=== PATIENT | male | born 1960 | race African-American/Black ===

== ENCOUNTER 2018-05-15 13:54 | Observation (INO) | payer BC ==
[2018-05-15 15:08] LABS: ABSOLUTE BASOPHILS # (AUTO) 0.1 10^3/uL (0.0-0.2); ABSOLUTE EOSINOPHILS # (AUTO) 0.2 10^3/uL (0.0-0.6); ABSOLUTE MONOCYTES (AUTO) 0.4 10^3/uL (0.1-1.4); ABSOLUTE NEUT (AUTO) 3.7 10^3/uL (1.7-8.2); BASOPHILS % (AUTO) 1.6 % (0-2); EOSINOPHILS % (AUTO) 3.1 % (0-6); HEMATOCRIT 41.4 % (37.9-51.0); HEMOGLOBIN 14.3 g/dL (13.5-17.0); LYMPHOCYTES % (AUTO) 40.2 % (13-45); MEAN CORPUSCULAR HEMOGLOBIN 31.2 pg (27.0-33.4); MEAN CORPUSCULAR HGB CONC 34.6 g/dL (32.0-36.0); MEAN CORPUSCULAR VOLUME 90 fl (80-97); MONOCYTES % (AUTO) 5.3 % (3-13); PLATELET COUNT 189 10^3/uL (150-450); RED BLOOD COUNT 4.58 10^6/uL (4.35-5.55); RED CELL DISTRIBUTION WIDTH 12.6 % (11.5-14.0); SEGMENTED NEUTROPHILS % (AUTO) 49.8 % (42-78); TOTAL CELLS COUNTED % (AUTO) 100 %; WHITE BLOOD COUNT 7.4 10^3/uL (4.0-10.5)
--- NOTE | 2018-05-15 15:14 | RADIOLOGY REPORT (SQ) ---
EXAM DESCRIPTION: CHEST SINGLE VIEW COMPLETED DATE/TIME: 05/15/2018 2:50 pm REASON FOR STUDY: left pain arm COMPARISON: None. EXAM PARAMETERS: NUMBER OF VIEWS: One view. TECHNIQUE: Single frontal radiographic view of the chest acquired. RADIATION DOSE: NA LIMITATIONS: None. FINDINGS: LUNGS AND PLEURA: No opacities, masses or pneumothorax. No pleural effusion. MEDIASTINUM AND HILAR STRUCTURES: No masses. Contour normal. HEART AND VASCULAR STRUCTURES: Heart normal in size. Normal vasculature. BONES: No acute findings. HARDWARE: None in the chest. OTHER: No other significant finding. IMPRESSION: NO ACUTE RADIOGRAPHIC FINDING IN THE CHEST. TECHNICAL DOCUMENTATION: JOB ID: [id number] [employer]- All Rights Reserved Reading location - IP/workstation name: [email or web address]
[2018-05-15 15:19] LABS: ALANINE AMINOTRANSFERASE 24 U/L (21-72); ALBUMIN 4.3 g/dL (3.5-5.0); ALKALINE PHOSPHATASE 83 U/L (38-126); ANION GAP 10 (5-19); ASPARTATE AMINO TRANSFERASE 23 U/L (17-59); BILIRUBIN,DIRECT 0.2 mg/dL (0.0-0.4); BILIRUBIN,TOTAL 0.3 mg/dL (0.2-1.3); BLOOD UREA NITROGEN 14 mg/dL (7-20); CALCIUM 9.4 mg/dL (8.4-10.2); CARBON DIOXIDE 23 mmol/L (22-30); CHLORIDE 108 mmol/L (98-107); CREATINE KINASE 145 U/L (55-170); GLUCOSE 90 mg/dL (75-110); POTASSIUM 3.9 mmol/L (3.6-5.0); SODIUM 141.2 mmol/L (137-145); TOTAL PROTEIN 6.7 g/dL (6.3-8.2)
[2018-05-15 15:31] LABS: CREATINE KINASE MB 0.54 ng/mL (<4.55)
[2018-05-15 15:33] LABS: TROPONIN I < 0.012 ng/mL
--- NOTE | 2018-05-15 18:18 | EKG REPORT ---
SEVERITY:- BORDERLINE ECG - SINUS RHYTHM BORDERLINE ST ELEVATION, ANTEROLATERAL LEADS .NON DIAGNOSTIC : Confirmed by: Haydee Polk MD 15-May-2018 18:17:54
[2018-05-15] MEDS ORDERED: (PENDING PHARMACY ID) (Lisinopril/Hydrochlorothiazide [Zestoretic 20-12.5 Mg Tablet] 1 TAB PO SCH (21:15)
--- NOTE | 2018-05-15 21:35 | PDOC H&P ---
History of Present Illness Admission Date/PCP: 05/15/18 13:54 FELISHA TEMPLE MD History of Present Illness: JOE BURCH is a 58 year old male, He came to the office today for ev aluation of pain in the left upper arm, there was no chest pain there was no shoulder pain there was no weakness patient was able to rotate the shoulder in all directions but he said he has pain in his left upper arm affecting the side of his chest, in the office a 12-lead EKG was done, it demonstrated sinus rhythm, ST segment elevation in the inferior leads, because of the abnormal EKG though he has no chest pain, he has pain in his left upper arm I felt patient needed to be admitted for observation and evaluation Past Medical History Cardiac Medical History: Reports: Hyperlipidema, Hypertension Social History Smoking Status: Current Some Day Smoker Cigarettes Packs Per Day: 1 Frequency of Alcohol Use: Occasional Drugs: Marijuana Family History Parental Family History Reviewed: Yes Children Family History Reviewed: Yes Sibling(s) Family History Reviewed.: Yes Medication/Allergy Home Medications: Aspirin [Adult Low Dose Aspirin EC] 81 mg PO DAILY 05/15/18 Lisinopril/Hydrochlorothiazide [Zestoretic 20-12.5 mg Tablet] 1 tab PO DAILY 05/15/18 Metoprolol Succinate [Toprol Xl 50 mg Tab.sr] 50 mg PO DAILY 05/15/18 Multivitamin [Multiple Vitamins] 1 tab PO DAILY 05/15/18 Omeprazole 40 mg PO QAM 05/15/18 Simvastatin [Zocor 40 mg Tablet] 40 mg PO QPM 05/15/18 Allergies/Adverse Reactions: No Known Allergies Allergy (Verified 05/29/12 09:42) Review of Systems Constitutional: ABSENT: chills, fever(s), headache(s), weight gain, weight loss Eyes: ABSENT: visual disturbances Ears: ABSENT: hearing changes Cardiovascular: ABSENT: chest pain, dyspnea on exertion, edema, orthropnea, palpitations Respiratory: ABSENT: cough, hemoptysis Gastrointestinal: ABSENT: abdominal pain, constipation, diarrhea, hematemesis, hematochezia, nausea, vomiting Genitourinary: ABSENT: dysuria, hematuria Musculoskeletal: ABSENT: joint swelling Integumentary: ABSENT: rash, wounds Neurological: ABSENT: abnormal gait, abnormal speech, confusion, dizziness, focal weakness, syncope Psychiatric: ABSENT: anxiety, depression, homidical ideation, suicidal ideation Endocrine: ABSENT: cold intolerance, heat intolerance, menstrual abnormalities, polydipsia, polyuria Hematologic/Lymphatic: ABSENT: easy bleeding, easy bruising, lymphadenopathy Physical Exam Vital Signs: Temp Pulse Resp BP Pulse Ox 98.1 F 68 16 140/90 H 96 05/15/18 19:11 05/15/18 20:22 05/15/18 19:11 05/15/18 20:22 05/15/18 19:11 Intake & Output 05/14/18 05/15/18 05/16/18 06:59 06:59 06:59 Intake Total 492 Balance 492 General appearance: PRESENT: no acute distress, well-developed, well-nourished Head exam: PRESENT: atraumatic, normocephalic Eye exam: PRESENT: conjunctiva pink, EOMI, PERRLA Ear exam: PRESENT: normal external ear exam Mouth exam: PRESENT: moist, tongue midline Neck exam: PRESENT: full ROM Respiratory exam: PRESENT: clear to auscultation miles Cardiovascular exam: PRESENT: RRR, +S1, +S2 Pulses: PRESENT: normal dorsalis pedis pul, +2 pedal pulses bilateral Vascular exam: PRESENT: normal capillary refill GI/Abdominal exam: PRESENT: normal bowel sounds, soft Rectal exam: PRESENT: deferred Neurological exam: PRESENT: alert, awake, oriented to person, oriented to place, oriented to time, oriented to situation, CN II-XII grossly intact Psychiatric exam: PRESENT: appropriate affect, normal mood Skin exam: PRESENT: dry, intact, warm Results Laboratory Results: 05/15/18 14:55 05/15/18 14:55 05/15/18 05/15/18 14:55 14:55 WBC 7.4 RBC 4.58 Hgb 14.3 Hct 41.4 MCV 90 MCH 31.2 MCHC 34.6 RDW 12.6 Plt Count 189 Seg Neutrophils % 49.8 Lymphocytes % 40.2 Monocytes % 5.3 Eosinophils % 3.1 Basophils % 1.6 Absolute Neutrophils 3.7 Absolute Lymphocytes 3.0 Absolute Monocytes 0.4 Absolute Eosinophils 0.2 Absolute Basophils 0.1 Sodium 141.2 Potassium 3.9 Chloride 108 H Carbon Dioxide 23 Anion Gap 10 BUN 14 Creatinine 1.08 Est GFR ( Amer) > 60 Est GFR (Non-Af Amer) > 60 Glucose 90 Calcium 9.4 Total Bilirubin 0.3 AST 23 ALT 24 Alkaline Phosphatase 83 Total Protein 6.7 Albumin 4.3 05/15/18 05/15/18 14:55 14:55 Creatine Kinase 145 CK-MB (CK-2) 0.54 Troponin I < 0.012 Impressions: Chest X-Ray 05/15/18 00:00 IMPRESSION: NO ACUTE RADIOGRAPHIC FINDING IN THE CHEST. Assessment & Plan - Diagnosis (1) Pain in left upper arm Is this a current diagnosis for this admission?: Yes Plan: He has risk factors for ischemic heart disease, he presented with pain in the left upper arm no chest pain with abnormal EKG patient is admitted for management to rule out acute coronary syndrome and probably obtain a stress test before discharge (2) Abnormal EKG Is this a current diagnosis for this admission?: Yes
[2018-05-15] MEDS: HYDROCHLOROTHIAZIDE 12.5 MG TABLET PO SCH (22:14)
[2018-05-15] MEDS: ASPIRIN 81 MG TABLET, ENT COATED PO SCH (22:14)
[2018-05-15] MEDS: MULTIVITAMIN TABLET PO SCH (22:14)
[2018-05-15] MEDS: LISINOPRIL 10 MG TABLET PO SCH (22:15)
[2018-05-15] MEDS: SIMVASTATIN 40 MG TABLET PO SCH (22:15)
[2018-05-15 23:25] LABS: CREATINE KINASE MB 0.47 ng/mL (<4.55)
[2018-05-15 23:31] LABS: TROPONIN I < 0.012 ng/mL
[2018-05-16 07:59] LABS: CREATINE KINASE MB 0.36 ng/mL (<4.55)
[2018-05-16 08:00] LABS: TROPONIN I < 0.012 ng/mL
[2018-05-16] MEDS ORDERED: LANSOPRAZOLE 30 MG TAB.RAP.DR PO SCH (08:00)
[2018-05-16] MEDS ORDERED: ASPIRIN 81 MG TABLET, ENT COATED PO SCH (10:00)
[2018-05-16] MEDS: HYDROCHLOROTHIAZIDE 12.5 MG TABLET PO SCH (10:21)
[2018-05-16] MEDS: LISINOPRIL 10 MG TABLET PO SCH (10:21)
[2018-05-16] MEDS: ASPIRIN 81 MG TABLET, ENT COATED PO SCH (10:21)
[2018-05-16] MEDS: MULTIVITAMIN TABLET PO SCH (10:21)
[2018-05-16] MEDS: SIMVASTATIN 40 MG TABLET PO SCH (17:47)
[2018-05-16 17:57] VITALS: BP 140/90
--- NOTE | 2018-05-16 21:13 | PDOC DISCHARGE SUMMARY ---
General - Admit/Disc Date/PCP Admission Date/Primary Care Provider: 05/15/18 13:54 FELISHA TEMPLE MD Discharge Date: 05/16/18 - Discharge Diagnosis (1) Pain in left upper arm Is this a current diagnosis for this admission?: Yes (2) Abnormal EKG Is this a current diagnosis for this admission?: Yes - Additional Information Discharge Diet: Cardiac Discharge Activity: Activity As Tolerated, Balance Activity w/Rest Home Medications: Aspirin [Adult Low Dose Aspirin EC] 81 mg PO DAILY 05/15/18 Lisinopril/Hydrochlorothiazide [Zestoretic 20-12.5 mg Tablet] 1 tab PO DAILY 05/15/18 Metoprolol Succinate [Toprol Xl 50 mg Tab.sr] 50 mg PO DAILY 05/15/18 Multivitamin [Multiple Vitamins] 1 tab PO DAILY 05/15/18 Omeprazole 40 mg PO QAM 05/15/18 Simvastatin [Zocor 40 mg Tablet] 40 mg PO QPM 05/15/18 History of Present Illness History of Present Illness: JOE BURCH is a 58 year old male, He came to the office today for evaluation of pain in the left upper arm, there was no chest pain there was no shoulder pain there was no weakness patient was able to rotate the shoulder in all directions but he said he has pain in his left upper arm affecting the side of his chest, in the office a 12-lead EKG was done, it demonstrated sinus rhythm, ST segment elevation in the inferior leads, because of the abnormal EKG though he has no chest pain, he has pain in his left upper arm I felt patient needed to be admitted for observation and evaluation Hospital Course Hospital Course: Patient was admitted for the management of pain in the left upper arm with abnormal EKG. 3 sets of cardiac enzymes were negative for acute TN, there was no chest pain patient be discharged home will arrange outpatient stress test for the patient Physical Exam Vital Signs: Temp Pulse Resp BP Pulse Ox 98.1 F 58 L 18 140/90 H 97 05/16/18 17:54 05/16/18 17:54 05/16/18 17:54 05/16/18 17:54 05/16/18 17:54 Intake & Output 05/15/18 05/16/18 05/17/18 06:59 06:59 06:59 Intake Total 714 750 Balance 714 750 Weight 86.1 kg General appearance: PRESENT: no acute distress, well-developed, well-nourished Head exam: PRESENT: atraumatic, normocephalic Eye exam: PRESENT: conjunctiva pink, EOMI, PERRLA Ear exam: PRESENT: normal external ear exam Mouth exam: PRESENT: moist, tongue midline Neck exam: PRESENT: full ROM Cardiovascular exam: PRESENT: RRR, +S1, +S2 Pulses: PRESENT: normal dorsalis pedis pul, +2 pedal pulses bilateral Vascular exam: PRESENT: normal capillary refill GI/Abdominal exam: PRESENT: normal bowel sounds, soft Rectal exam: PRESENT: deferred Neurological exam: PRESENT: alert, awake, oriented to person, oriented to place, oriented to time, oriented to situation, CN II-XII grossly intact Skin exam: PRESENT: dry, intact, warm Results Laboratory Results: 05/15/18 14:55 05/15/18 14:55 05/15/18 05/15/18 05/15/18 14:55 14:55 22:26 Creatine Kinase 145 161 CK-MB (CK-2) 0.54 Troponin I < 0.012 05/15/18 05/16/18 05/16/18 22:26 06:53 06:53 Creatine Kinase 139 CK-MB (CK-2) 0.47 0.36 Troponin I < 0.012 < 0.012 Impressions: Chest X-Ray 05/15/18 00:00 IMPRESSION: NO ACUTE RADIOGRAPHIC FINDING IN THE CHEST. Qualifiers - * PATIENT BEING DISCHARGED WITH ANY OF THE FOLLOWING DIAGNOSIS: No
== END 2018-05-16 18:16 | disposition home or self-care (01) ==
LOC: 3S 13:54
PROVIDERS: ADMIT Internal Medicine; ATTEND Internal Medicine
DX: M79.622 Pain in left upper arm (principal); R94.31 Abnormal electrocardiogram [ECG] [EKG]; F17.210 Nicotine dependence, cigarettes, uncomplicated; E78.5 Hyperlipidemia, unspecified; I10 Essential (primary) hypertension; Z79.82 Long term (current) use of aspirin; Z79.899 Other long term (current) drug therapy
CPT/HCPCS: 36415; 71045; 80048; 80076; 82550; 82553; 83036; 84484; 85025; 85379; 93005; 93010; G0378; G0379

== ENCOUNTER → 2018-05-22 | Outpatient (CLI) | payer BC ==
[~2018-05-22] MED LIST: AMINOPHYLLINE INJ/PF 250 MG/10 ML SDV IV ONE; REGADENOSON INJ 0.4 MG/5 ML DISP.SYRIN IV ONE
--- NOTE | 2018-05-22 16:30 | DRAGON STRESS TEST REPORT ---
INTRAVENOUS LEXISCAN CARDIOLITE STRESS TEST USING SINGLE PHOTON EMMISION COMPUTERIZED TOMOGRAPHIC. DATE OF PROCEDURE: May 22, 2018. INDICATION : Chest pain CARDIAC RISK FACTORS: Diabetes, hypertension RESTING EKG: Sinus rhythm without any baseline ST-T wave changes. STRESS EKG: No significant ST segment changes noted with LexiScan bolus REASON FOR TERMINATION: Protocol. PROCEDURE REPORT: Baseline heart rate 65 beats per minute with blood pressure of 110/66. Patient had no significant complaints. Patient was bolused with Lexiscan 0.4 mg intravenously followed by saline bolus. Heart rate at 2 minutes post bolus 86 with a blood pressure of 119/66. 3 minutes post bolus heart rate 78 with blood pressure of 109/64. No significant EKG changes were noted. Patient had no significant complaints during the procedure or postprocedure. CONCLUSIONS: Normal EKG and hemodynamic response to IV LexiScan. NUCLEAR DATA: At rest the patient was given 13.62 millicuries of technetium 99 sestamibi injected intravenously. As per protocol rest gated SPECT images were obtained. On day of stress test, the patient was given intravenous LexiScan at a dose of 0.4 mg in 5 mL intravenously, followed by flush with normal saline. Subsequently the stress dose of 39.7 millicuries of technetium 99 sestamibi was injected intravenously. As per protocol stress gated images were obtained. NUCLEAR INTERPRETATION: Both raw and processed data were used for interpretation. Visual, qualitative, computer-generated quantitative data was used. There was good myocardial uptake of technetium compound. Motion artifact and soft tissue attenuations were noted. Increased visceral uptake was noted. No definitive areas of transient perfusion defect noted, No definitive areas of fixed perfusion defect or scars noted. EKG gated imaging showed LV EF at 50 to %, rest and stress gated EF similar visually. T. I D. ratio was 0.92. Lung heart ratio noted to be within normal limits 0.30. No significant extracardiac and abnormal radiotracer activities were noted. RV free wall uptake was noted to be WNL. IMPRESSION: Also refer to comments under nuclear interpretation. Also test results needs to be interpreted in the context of pretest probability. 1. No definitive areas of transient perfusion defect noted. 2. There is no definitive scintigraphic evidence of myocardial infarction/scar. 3. EKG gated imaging shows left ventricular ejection fraction of approx. 52 %. 4. Clinical correlation requested as worse disease and or balanced ischemia could be missed. In approximately 10% of the cases Lexiscan may not cause adequate vasodilatory stress. RECOMMENDATIONS: Aggressive risk factor modification and medical management. Further evaluation may be needed if continued symptoms or other high risk indicators are noted on clinical evaluation. Close cardiology follow-up is also recommended. Clinical correlation with echocardiogram derived ejection fraction. Inability to exercise by itself can lead to increased cardiovascular event risks. Consider cardiology consultation and or follow-up if clinically indicated. I am available for cardiology evaluation and consultation if requested by the manufacturing engineer paint, unless patient already has a railroad brakeman. Dr. Shyla Enriquez. MRCP Board certified in cardiology and sleep medicine. Board certified in nuclear cardiology, adult echocardiography. [employer]
== END ==
LOC: RAD 06:30
PROVIDERS: ATTEND Internal Medicine
DX: R07.9 Chest pain, unspecified (principal)
CPT/HCPCS: 93017; 78452; A9500; J2785; J0280